=== PATIENT | female | born 1985 | race Caucasian/White ===

== ENCOUNTER 2018-08-16 09:00 | Outpatient (CLI) | payer OTHER | END 2018-08-16 09:03 | disposition home or self-care (01) | LOC: SONOGRAMA 09:00 | DX: N60.11 Diffuse cystic mastopathy of right breast (principal) ==

== ENCOUNTER 2020-06-10 09:04 | Outpatient (CLI) | payer OTHER | END 2020-06-10 09:11 | disposition home or self-care (01) | LOC: SONOGRAMA 09:04 → MAMO-SONO 09:15 | PROVIDERS: ATTEND Obstetrics & Gynecology | DX: N60.11 Diffuse cystic mastopathy of right breast (principal) ==

== ENCOUNTER 2021-06-14 09:08 | Outpatient (CLI) | payer OTHER | END 2021-06-14 09:15 | disposition home or self-care (01) | LOC: SONOGRAMA 09:08 | PROVIDERS: ATTEND Obstetrics & Gynecology | DX: N60.11 Diffuse cystic mastopathy of right breast (principal) ==

== ENCOUNTER 2022-07-12 13:25 | Outpatient (CLI) | payer OTHER | END 2022-07-12 13:33 | disposition home or self-care (01) | LOC: RAD 13:25 | PROVIDERS: ATTEND General Practice | DX: S99.912A Unspecified injury of left ankle, initial encounter (principal); M25.571 Pain in right ankle and joints of right foot ==

== ENCOUNTER 2022-07-18 10:14 | Outpatient (CLI) | payer OTHER | END 2022-07-18 10:25 | disposition home or self-care (01) | LOC: SONOGRAMA 10:14 | PROVIDERS: ATTEND Obstetrics & Gynecology | DX: N60.11 Diffuse cystic mastopathy of right breast (principal) ==

== ENCOUNTER 2022-08-15 16:27 | Outpatient (CLI) | payer OTHER | END 2022-08-15 16:34 | disposition home or self-care (01) | LOC: RAD 16:27 | DX: S82.62XA Displaced fracture of lateral malleolus of left fibula, initial encounter for closed fracture (principal) ==

== ENCOUNTER 2022-11-08 11:53 | Outpatient (CLI) | payer OTHER | END 2022-11-08 12:02 | disposition home or self-care (01) | LOC: SONOGRAMA 11:53 | PROVIDERS: ATTEND Obstetrics & Gynecology | DX: N91.1 Secondary amenorrhea (principal) ==

== ENCOUNTER 2022-12-19 16:27 | Outpatient (CLI) | payer OTHER | END 2022-12-19 16:34 | disposition home or self-care (01) | LOC: RAD 16:27 | DX: J45.909 Unspecified asthma, uncomplicated (principal); J31.0 Chronic rhinitis ==

== ENCOUNTER → 2022-12-19 16:49 | Outpatient (CLI) | payer OTHER | END | disposition home or self-care (01) | LOC: LAB 16:49 | PROVIDERS: ATTEND Internal Medicine Gastroenterology | DX: R30.0 Dysuria (principal) ==

== ENCOUNTER 2023-06-05 13:29 | Emergency (ER) | payer OTHER ==
[~2023-06-05] VITALS: Ht 162.6 cm; Wt 90.7 kg
[2023-06-05] MEDS ORDERED: ZYRTEC10 M3 (13:39)
[2023-06-05] MEDS ORDERED: GLUMETZA500 MG (13:39)
[2023-06-05 15:46] LABS: HEMATOCRIT 42.5 % (36.0-45.00); HEMOGLOBIN 14.5 g/dL (12.0-15.00); MEAN CELL VOLUME 87.2 fL (80.00-100.00); MEAN CORPUSCULAR HEMOGLOBIN 29.7 pg (27.00-32.0); MEAN CORPUSCULAR HGB CONC 34.1 g/dl (32.0-36.0); PLATELET COUNT 250 K/uL (150-450); RED BLOOD COUNT 4.88 M/uL (4.00-6.00); RED CELL DISTRIBUTION WIDTH 14.5 % (11.5-14.5)
[2023-06-05 16:08] LABS: URINE APPEARANCE Clear; URINE BILIRRUBIN Negative (NEGATIVE); URINE BLOOD Trace; URINE COLOR Yellow; URINE GLUCOSE Negative (NEGATIVE); URINE LEUKOCYTE Small; URINE NITRATE Negative; URINE PROTEIN Negative (NEGATIVE); URINE UROBILINOGEN 0.2 E.U./dl
[2023-06-05 16:12] LABS: URINE BACTERIA 3024.9 uL (0.0-1933); URINE EPITHELIAL CELLS 46.9 uL (0.0-38.8); URINE RBC 15.2 uL (0.0-20.8); URINE WBC 25.3 uL (0.0-23.2)
[2023-06-05 16:13] LABS: CALCIUM 8.9 mg/dL (8.5-10.1); CREATININE SERUM 1.02 mg/dL (0.55-1.02); GFR 60.65; POTASSIUM 3.91 mEq/L (3.5-5.1)
[2023-06-05] MEDS ORDERED: ONDANSETRON HCL4 MG PO (17:14)
[2023-06-05] MEDS ORDERED: PRILOSEC OTC20 MG PO (17:14)
[2023-06-05] MEDS ORDERED: INTESTINEX680 M1 PO (17:14)
== END 2023-06-05 17:28 | disposition home or self-care (01) ==
LOC: ER 13:29
PROVIDERS: Nurse Practitioner Family
DX: R11.10 Vomiting, unspecified (principal); R19.7 Diarrhea, unspecified; J45.909 Unspecified asthma, uncomplicated; E11.9 Type 2 diabetes mellitus without complications; Z79.84 Long term (current) use of oral hypoglycemic drugs; Z20.822 Contact with and (suspected) exposure to COVID-19